=== PATIENT | female | born 1990 | race Caucasian/White ===

== ENCOUNTER 2019-01-28 17:50 | Emergency (ER) | payer SELFPAY ==
[2019-01-28] MEDS ORDERED: ACETAMINOPHEN 325 MG TABLET PO ONE (19:22)
[2019-01-28] MEDS ORDERED: ALBUTEROL SULFATE HFA (90 MCG/PUFF) 8 GM MDI (1 MDI/ER DISP) IH ONE (19:46)
--- NOTE | 2019-01-28 19:46 | ER Document Report ---
HPI - HPI Time Seen by Provider: 01/28/19 19:39 Pain Level: 4 Context: 28-year-old female presents the emergency department flulike symptoms. Patient states she started having a hacking cough on Monday and then developed high fever, myalgias, lethargy, headache, and flulike symptoms abruptly yesterday. Patient also has shortness of breath. Patient denies nausea or vomiting, denies dysuria/urgency/urinary frequency. No other complaints - EENT EENT: REPORTS: Sore Throat, Ear Pain - RESPIRATORY Respiratory: REPORTS: Trouble Breathing, Coughing - URINARY Urinary: DENIES: Dysuria, Urgency, Frequency - REPRODUCTIVE Reproductive: DENIES: :, Postmenopausal, Abnormal bleeding / discharge - MUSCULOSKELETAL Musculoskeletal: DENIES: Extremity pain Past Medical History - Social History Smoking Status: Former Smoker Chew tobacco use (# tins/day): No Drug Abuse: None Family History: Reviewed & Not Pertinent Patient has suicidal ideation: No Patient has homicidal ideation: No - Immunizations Hx Diphtheria, Pertussis, Tetanus Vaccination: Yes Vertical Provider Document - CONSTITUTIONAL Notes: PHYSICAL EXAMINATION: Reviewed vital signs and charting by RN GENERAL: Alert, interacts well. No acute distress. HEAD: Normocephalic, atraumatic. EYES: Pupils equal and round. Extraocular movements intact. ENT: Oral mucosa moist, tongue midline. NECK: Full range of motion. Trachea midline. LUNGS: Clear to auscultation bilaterally, no wheezes, rales, or rhonchi. No respiratory distress. HEART: Tachycardia with regular rhythm and proportion to temperature. No murmur ABDOMEN: soft, non-tender. No distention. Bowel sounds present EXTREMITIES: Moves all 4 extremities spontaneously. No edema, No cyanosis. PSYCH: Normal affect, normal mood. SKIN: Warm, dry, normal turgor. No rashes or lesions noted. - INFECTION CONTROL TRAVEL OUTSIDE OF THE [place] IN LAST 30 DAYS: No Course - Re-evaluation Re-evalutation: 01/28/19 19:39 Patient presents with cough, vomiting, diarrhea, and fever at home consistent with a flulike illness although our flu test here is negative.Clinical history and exam is not consistent with an acute bacterial meningitis, encephalitis, pneumonia, there is no evidence of a cellulitis on examination. Patient likewise denies any urinary symptoms. Patient does not have any focal abdominal tenderness to suggest an acute biliary pathology, acute appendicitis, acute mesenteric ischemia, bowel obstruction, bowel, or any other life-threatening acute intra-abdominal pathology as the etiology of the fever and additional symptoms today. Labs are otherwise unremarkable. Patient is tolerated oral intake without difficulty. Vitals at time of reassessment are within normal limits. At this time will discharge with return precautions and follow-up recommendations. Verbal discharge instructions given a the bedside and opportunity for questions given. Medication warnings reviewed. Patient is in agreement with this plan and has verbalized understanding of return precautions and the need for primary care follow-up in the next 24-72 hours. - Vital Signs Vital signs: Temp Pulse Resp BP Pulse Ox 101.3 F H 109 H 20 176/98 H 99 01/28/19 19:14 01/28/19 17:58 01/28/19 19:14 01/28/19 17:58 01/28/19 19:14 Discharge - Discharge Clinical Impression: Flu-like symptoms Condition: Good Disposition: HOME, SELF-CARE Additional Instructions: You have flulike symptoms we could possibly be influenza. Like we discussed, Tamiflu was offered but considering the risks versus benefits and the fact that you will only get 12 less hours of symptoms you opted against it as you will get a work note and can rest at home. There is no treatment that is effective for this diagnosis other than supportive care at home. This includes drinking plenty of fluids, using Tylenol or ibuprofen as needed for fever and discomfort, and Zofran as needed for nausea and vomiting. Please follow follow-up with your primary doctor in the next 3 to 5 days. Return to the emergency department immediately if you began to have persistent vomiting prevents you from being able to keep fluids down for more than 12 hours, you pass out, you began having difficulty breathing, you become confused, or you have any other symptoms that are worrisome to you. Forms: Return to Work Referrals: GERALD GAUTAM NP [Primary Care Provider] - Follow up as needed
[2019-01-28 19:56] VITALS: BP 168/82
== END 2019-01-28 19:54 | disposition home or self-care (01) ==
LOC: ER 17:50
DX: R05 Cough (principal); R50.9 Fever, unspecified; M79.10 Myalgia, unspecified site; R53.83 Other fatigue; R51 Headache; R06.02 Shortness of breath; J02.9 Acute pharyngitis, unspecified; H92.09 Otalgia, unspecified ear; Z87.891 Personal history of nicotine dependence
CPT/HCPCS: 99283; J3490